=== PATIENT | female | born 1990 | race Caucasian/White ===

== ENCOUNTER 2016-07-05 08:37 | Day surgery (SDC) | payer BC, MEDICAID ==
[~2016-07-05] VITALS: Ht 165.1 cm; Wt 61.2 kg
[2016-07-05 08:51] LABS: HCG,QUAL RESULT NEGATIVE (NEGATIVE)
[2016-07-05 08:58] VITALS: O2SAT 100
[2016-07-05] MEDS ORDERED: LR 1,000 ML IV.SOLN IV ONE (09:55)
[2016-07-05] MEDS ORDERED: PROPOFOL 200MG/ 20ML VIAL (DIPRIVAN) IV ONE (09:55)
[2016-07-05] MEDS ORDERED: NEOSTIGMINE METHYLSULFATE 1 MG/ML, 10 ML VIAL IVP ONE (09:55)
[2016-07-05] MEDS ORDERED: GLYCOPYRROLATE 0.2 MG/ML VIAL IJ ONE (09:55)
[2016-07-05] MEDS ORDERED: NS IRRIG SOLN 1000 ML IR ONE (09:55)
[2016-07-05] MEDS ORDERED: NS 50 ML BAG IV ONE (09:55)
[2016-07-05] MEDS ORDERED: ONDANSETRON HCL 4 MG/2 ML VIAL IVP ONE (09:55)
[2016-07-05] MEDS ORDERED: WATER FOR IRRIGATION,STERILE 1,000 ML IRRIG.SOLN IR ONE (09:55)
[2016-07-05] MEDS ORDERED: fentaNYL CITRATE/PF 100 MCG/2 ML AMP IVP ONE (09:55)
[2016-07-05] MEDS ORDERED: EPINEPHrine 1 MG/ML AMP IVP ONE (09:55)
[2016-07-05] MEDS ORDERED: DEXAMETHASONE SOD PHOSPHATE 4 MG/ML VIAL IVP ONE (09:55)
[2016-07-05] MEDS ORDERED: LIDOCAINE/EPI 1% 1:100000 20 ML VIAL INJ ONE (09:55)
[2016-07-05] MEDS ORDERED: BACITRACIN ZINC 15 GM TOPICAL OINTMENT TP ONE (09:55)
[2016-07-05] MEDS ORDERED: ROCURONIUM BROMIDE 10 MG/ML (ZEMURON) IV ONE (09:55)
[2016-07-05] MEDS ORDERED: MIDAZOLAM HCL 5 MG/5 ML VIAL IVP ONE (09:55)
[2016-07-05] MEDS ORDERED: SEVOFLURANE 15 MIN GAS INH ONE (09:55)
[2016-07-05] MEDS ORDERED: MUPIROCIN 2% TOPICAL OINTMENT 22 GM TP ONE (09:55)
[2016-07-05] MEDS ORDERED: OXYMETAZOLINE HCL 0.05% NASAL SPRAY NS ONE (09:55)
[2016-07-05] MEDS ORDERED: LR 1,000 ML IV SCH (10:50)
[2016-07-05] MEDS ORDERED: METOCLOPRAMIDE HCL 10 MG/2 ML VIAL IVP PRN (11:00)
[2016-07-05] MEDS ORDERED: MORPHINE 2 MG/ML INJ. SYRINGE IVP PRN ×3 (11:00)
[2016-07-05 13:00] VITALS: BP 132/82; PULSE 76; RESP 16
[2016-07-05] MEDS ORDERED: HYDROcodone/ACETAMIN 5-325 MG TAB (NORCO/ VICODIN) PO PRN (13:30)
[2016-07-05] MEDS ORDERED: HYDROcodone/ACETAMIN 5-325 MG TAB (NORCO/ VICODIN) ONE (13:34)
[2016-07-05] MEDS ORDERED: METOCLOPRAMIDE HCL 10 MG/2 ML VIAL ONE (15:05)
== END 2016-07-05 15:50 | disposition home or self-care (01) ==
LOC: SMU 08:37 → SOR 08:37
PROVIDERS: ATTEND Otolaryngology
DX: J34.2 Deviated nasal septum (principal); J34.3 Hypertrophy of nasal turbinates
CPT/HCPCS: 30140; 30520; 31256; 84703; 88305; 88311; J0171; J1100; J2250; J2405; J2704; J2710; J2765; J3010; J3490; J7120